=== PATIENT | male | born 1985 | race Caucasian/White ===

== ENCOUNTER 2020-01-30 20:39 | Emergency (ER) | payer BC ==
[2020-01-30 21:30] LABS: #Basophils 0.1 thou/uL (0.0-0.2); #Eosinphils 0.2 thou/uL (0.0-0.7); #Lymphocytes 2.1 thou/uL (1.20-3.40); #Monocytes 0.5 thou/uL (0.11-0.59); #Neutrophils 3.4 thou/uL (1.40-6.50); %Basophils 1.6 % (0.0-1.0); %Eosinophils 2.6 % (0.0-10.0); %Lymphocytes 33.3 % (21.0-51.0); %Monocytes 8.5 % (0.0-10.0); %Neutrophils 54.1 % (42.0-75.0); Hemoglobin 16.8 g/dL (14.0-18.0); Mean Corpuscular HGB CONC 35.2 g/dL (32.0-36.0); Mean Corpuscular Hemoglobin 30.1 pg (27.0-31.0); Mean Corpuscular Volume 85.6 fL (78.0-98.0); Mean Platelet Volume 6.4 fL (7.4-10.4); Platelet Count 262 thou/uL (130-400); RBC Distribution Width 11.9 % (11.5-14.5); Red Blood Cell (RBC) Count 5.59 mill/uL (4.70-6.10); White Blood Cell (WBC) Count 6.3 thou/uL (4.8-10.8)
--- NOTE | 2020-01-30 21:33 | CT ---
CT OF THE BRAIN WITHOUT CONTRAST 01/30/20 The ventricles are normal in size with no shift. No intracranial bleeding or extra-axial hematoma was seen. There is no air fluid level in the sphenoid sinus and the mastoid air cells are clear. There a re multiple facial fractures on the left side along with mucosal findings in many of the sinuses. See CT of the face for details. IMPRESSION: 1. No acute intracranial findings. 2. Left facial fractures. See CT of the face for details. Findings discussed with Dr. Laureano at 2115 on 01/30/20. POS: HOME
[2020-01-30 21:43] LABS: ALT (SGPT) 25 U/L (8-55); AST (SGOT) 30 U/L (5-34); Albumin 4.7 g/dL (3.5-5.0); Alkaline Phosphatase 88 U/L (40-110); Anion Gap 16 mmol/L (10-20); BUN (Urea Nitrogen) 9 mg/dL (8.9-20.6); Bilirubin, Total 0.5 mg/dL (0.2-1.2); Calc. Creatinine Clearance 0 mL/min (70-130); Carbon Dioxide 25 mmol/L (22-29); Chloride 104 mmol/L (98-107); Estimated GFR-MDRD 85; Globulin 3.6 g/dL (2.4-3.5); Glucose 136 mg/dL (70-105); Potassium 3.6 mmol/L (3.5-5.1); Protein, Total 8.3 g/dL (6.0-8.3)
[2020-01-30 21:50] LABS: Sodium 141 mmol/L (136-145)
--- NOTE | 2020-01-30 21:51 | CT ---
CT OF THE CERVICAL SPINE: 01/30/20 No acute fracture, dislocation, or disc space narrowing was seen. The facet joints are normal in appe arance the C1 to dens distance is normal and the soft tissues are normal in thickness. There is no si gn of central canal or foraminal stenosis, however, there does appear to be a left posterolateral dis c protrusion at the C5-C6 level that impinges upon the left lateral recess and could potentially impi nge upon the left C6 root. The lung apices are included and show no pneumothorax. No other soft tissu e abnormalities of the neck were seen. IMPRESSION: 1. No evidence of fracture. 2. Left posterolateral disc protrusion at C5-C6. Age indeterminate, but it could have pre-dated this trauma. Findings discussed with Dr. Laureano at 2114 on 01/30/20. POS: HOME
--- NOTE | 2020-01-30 22:34 | CT ---
CT FACIAL BONES 01/30/[address] of the face was performed following trauma. Axial slices were acquired followed by multipla nettie reconstructions. There are multiple facial fractures on the left side of the face as detailed below. Left orbit: Displaced fracture of the lateral wall with fragments impinging upon the left lateral rec tus muscle. Fracture through floor of left orbit anteriorly near the orbital rim without displacement . Retro-orbital area showed no acute change, though there is one tiny locule of air within it. Fractures of the left zygomatic arch: Present in at least two places. The free fragment is depressed somewhat. There may also be a fracture of the portion of the arch as it joins the mandible. Left maxillary sinus: Fractured through its lateral wall with slight displacement. Fracture seen in a nterior wall with minimal displacement. Soft tissue air is present anterior to this left maxillary si nus. An air fluid level is present within it. Other findings including mucosal thickening of the right maxillary sinus without clear fracture here. Opacification of ethmoid air cells bilaterally is presumed to be due to bleeding. No medial orbital wall fractures were seen. The nasal bones appear intact. The right retro-orbital ar ea was normal in appearance. There is some mild mucosal thickening in the right side of the sphenoid sinus. No air-fluid levels were seen within this sinus. The mastoid air cells are well included and a re clear. IMPRESSION: 1. Fracture of the left lateral orbit with displacement and impingement upon the left lateral re ctus muscle. 2. Nondisplaced fracture in the floor of the left orbit anteriorly near the orbital rim. 3. Multiple fractures of the left zygomatic arch with depression. 4. Fracture of the lateral wall of the left maxillary sinus with displacement. Fracture of the a nterior wall without significant displacement. 5. Mucosal thickening and bleeding in other sinuses as listed above. Findings discussed with Dr. Laureano at 2114 on 01/30/20. POS: HOME
== END 2020-01-30 21:55 | disposition home or self-care (01) ==
LOC: BURERS 20:39
DX: S02.40FA Zygomatic fracture, left side, initial encounter for closed fracture (principal); S02.40DA Maxillary fracture, left side, initial encounter for closed fracture; S02.32XA Fracture of orbital floor, left side, initial encounter for closed fracture; F10.129 Alcohol abuse with intoxication, unspecified; K21.9 Gastro-esophageal reflux disease without esophagitis; Z79.899 Other long term (current) drug therapy; W19.XXXA Unspecified fall, initial encounter
CPT/HCPCS: 36415; 70450; 70486; 72125; 80053; 85025